=== PATIENT | female | born 1985 | race Caucasian/White ===

== ENCOUNTER 2020-07-05 21:30 | Emergency (ER) | payer OTHER ==
[~2020-07-05] VITALS: Ht 172.7 cm; Wt 112.9 kg
[2020-07-05 21:40] VITALS: Ht 172.7 cm; Wt 112.9 kg
[2020-07-05 23:36] VITALS: BP 128/71
[2020-07-05 23:38] LABS: BASOPHIL % 0.4 % (0-2); PLATELET COUNT 202 x10^3mcL (130-400); RED CELL DISTRIBUTION WIDTH 14.5 % (11.5-14.5)
[2020-07-05 23:39] LABS: CALCIUM 8.5 mg/dL (8.5-10.1); CARBON DIOXIDE 20.5 mmol/L (21-32); CHLORIDE SERUM 104 mmol/L (98-107); CREATININE SERUM 0.9 mg/dL (0.6-1.0); GFR1 > 60 mL/min; GLUCOSE SERUM 98 mg/dL (74-106); POTASSIUM SERUM 3.7 mmol/L (3.5-5.1); SODIUM SERUM 140 mmol/L (136-145)
== END 2020-07-06 01:36 | disposition home or self-care (01) ==
LOC: ED 21:30
PROVIDERS: Student in an Organized Health Care Education/Training Program
DX: N93.9 Abnormal uterine and vaginal bleeding, unspecified (principal); N94.6 Dysmenorrhea, unspecified
CPT/HCPCS: J2001